=== PATIENT | male | born 1990 | race Caucasian/White ===

== ENCOUNTER 2017-05-20 03:03 | Emergency (ER) | payer SELFPAY ==
[~2017-05-20] VITALS: Ht 182.9 cm; Wt 90.7 kg
--- NOTE | 2017-05-20 03:09 | NUR ---
PT BIBA#[id number], PT ADMITS TO DOING METH. PT AOX3 RR EVEN AND UNLABORED. NO SOB NOTED. NAD NOTED. NO NVD AT THIS TIME. PT GOWNED AND PLACED ON MONITOR. DR. BECKMAN AT BEDSIDE FOR EVAL. PT DENIES SI/ HI AT THIS TIME.
--- NOTE | 2017-05-20 03:15 | NUR ---
CALLED LABS FOR BLOOD DRAW
[2017-05-20] MEDS ORDERED: LORAZEPAM 1 MG TABLET ONE (03:27)
[2017-05-20] MEDS ORDERED: LORAZEPAM 1 MG TABLET PO ONE (03:30)
--- NOTE | 2017-05-20 03:30 | NUR ---
PT REFUSED EKG, RISK AND BENEFITS EXPLAINED X3. PT STRONGLY REFUSED. AWARE
--- NOTE | 2017-05-20 03:34 | NUR ---
URINE COLLECTED. CALLED LAB FOR PHOTO LAB TECHNICIAN. PT STEPPED OUT TO HAVE A CIGARETTE. AWARE
--- NOTE | 2017-05-20 03:46 | NUR ---
LAB AT BEDSIDE FOR BLOOD DRAW
--- NOTE | 2017-05-20 03:47 | NUR ---
PT REFUSED VS AT THIS TIME. RISK AND BENEFITS EXPLAINED X3. PT STRONGLY REFUSED " I WOULD RATHER WALK AROUND AT THIS TIME." MD FOSTER
[2017-05-20 03:55] LABS: APPEARANCE,URINE CLEAR (CLEAR); BILIRUBIN,URINE NEGATIVE (NEGATIVE); BLOOD, URINE NEGATIVE Ery/uL (NEGATIVE); COLOR,URINE YELLOW (YELLOW); KETONES,URINE NEGATIVE (NEGATIVE); LEUKOCYTE ESTERASE ,URINE NEGATIVE (NEGATIVE); NITRITE, URINE NEGATIVE (NEGATIVE); PROTEIN,URINE NEGATIVE (NEGATIVE); UGLUCOSE NEGATIVE (NEGATIVE); UROBILINOGEN,URINE 0.2 EU/dL (0.2)
[2017-05-20 03:57] LABS: BASOPHILS # (AUTO) 0.1 /CMM (0.0-0.2); BASOPHILS % (AUTO) 1.4 % (0.0-2.0); EOSINOPHILS # (AUTO) 0.2 /CMM (0.0-0.7); HEMATOCRIT 43 % (39-51); HEMOGLOBIN 14.7 g/dL (13.5-17.5); LYMPHOCYTES # (AUTO) 2.8 /CMM (0.8-4.8); LYMPHOCYTES % (AUTO) 34.2 % (20.0-44.0); MEAN CORPUSCULAR HEMOGLOBIN 32 PG (26.0-33.0); MEAN CORPUSCULAR HGB CONC 34 g/dl (31.0-36.0); MEAN CORPUSCULAR VOLUME 94 fL (80-96); MONOCYTES # (AUTO) 0.9 /CMM (0.1-1.30); MONOCYTES % (AUTO) 11.4 % (2.0-12.0); NEUTROPHILS # (AUTO) 4.2 /CMM (1.8-8.9); PLATELET COUNT (AUTO) 243 /CMM (150-450); RDW COEFFICIENT OF VARIATION 12.9 (11.5-15.0); RED BLOOD CELL COUNT(AUTO) 4.61 MIL/uL (4.5-6.0); WHITE BLOOD COUNT (AUTO) 8.3 K/uL (4.3-11.0)
--- NOTE | 2017-05-20 04:14 | NUR ---
PT RESTING, PT EASILY AROUSABLE.
[2017-05-20 04:16] LABS: ALANINE AMINOTRANSFERASE 35 U/L (12-78); ALBUMIN 4.2 g/dL (3.4-5.0); ALCOHOL, BLOOD < 3 mg/dL (0-0); ALKALINE PHOSPHATASE 57 U/L (46-116); ASPARTATE AMINOTRANSFERASE 19 U/L (15-37); BILIRUBIN,DIRECT 0.2 mg/dL (0.0-0.2); BILIRUBIN,TOTAL 0.9 mg/dL (0.2-1.0); CARBON DIOXIDE 21 mmol/L (21-32); CHLORIDE 104 mmol/L (98-107); CREATININE 1.2 mg/dL (0.6-1.3); GLUCOSE 110 mg/dL (74-106); POTASSIUM 3.7 mmol/L (3.5-5.1); SODIUM SERUM 138 mmol/L (136-145); TOTAL PROTEIN, SERUM 7.5 g/dL (6.4-8.2); UREA NITROGEN, BLOOD 10 mg/dL (7-18)
[2017-05-20 04:17] LABS: ACETAMINOPHEN 0 ug/ml (10-30); SALICYLATE 0.4 mg/dL (2.8-20.0)
--- NOTE | 2017-05-20 07:06 | NUR ---
REPORT GIVEN TO CLAUDY ALLEN FOR JETT.
--- NOTE | 2017-05-20 07:41 | NUR ---
Patient discharged to home in stable condition. Written and verbal after care instructions given. Patient verbalizes understanding of instruction. ambulatory with a steady gait. pt aox3
[2017-05-20 07:42] VITALS: BP 110/58
== END 2017-05-20 07:43 | disposition home or self-care (01) ==
LOC: ER 03:06
DX: F11.10 Opioid abuse, uncomplicated (principal); F15.10 Other stimulant abuse, uncomplicated; F19.10 Other psychoactive substance abuse, uncomplicated; F32.9 Major depressive disorder, single episode, unspecified
CPT/HCPCS: 36415; 80048; 80076; 80305; 80329; 81001; 85025; 93005; 99285; A4606; G0480 ×2; Z7610; 81000-TC